=== PATIENT | male | born 1940 | race Caucasian/White ===

== ENCOUNTER 2024-08-08 07:24 | Emergency (ER) | payer MEDICARE ==
[2024-08-08] VITALS (7 sets, daily range): BP systolic 141–185; BP diastolic 66–80
[~2024-08-08] VITALS: Ht 177.8 cm; Wt 77.0 kg
[2024-08-08] MEDS ORDERED: NORVASC PO (07:37)
[2024-08-08] MEDS ORDERED: LOSARTAN POTASS25 MG PO (07:38)
[2024-08-08] MEDS ORDERED: HYDROCHLOROT12.5 M1 PO (07:39)
[2024-08-08 08:08] LABS: URINE BILIRUBIN - DIPSTICK Negative (NEGATIVE); URINE BLOOD DIPSTICK Negative (NEGATIVE); URINE GLUCOSE - DIPSTICK Negative (NEGATIVE); URINE KETONE Negative (NEGATIVE); URINE LEUK ESTERASE Negative (NEGATIVE); URINE NITRITE - DIPSTICK Negative (Negative); URINE PH 7.5 (4.5-8.0); URINE PROTEIN - DIPSTICK Trace mg/dL (NEG-TRACE); URINE UROBILINOGEN - DIPSTICK 0.2 E.U./dL (0.2)
[2024-08-08 08:09] LABS: BASO% 0.8 % (0-3); EOS% 5.5 % (0-8); HEMATOCRIT 39.5 % (39.0-50.0); IMMATURE GRANULOCYTES 0.2 % (0.0-5.0); LYMPH% 32.8 % (15-41); MEAN CELL VOLUME 99.2 fL CALC (80.0-100.0); MEAN CORPUSCULAR HGB 32.7 pG CALC (26.0-32.0); MEAN CORPUSCULAR HGB CONC 32.9 g/dL CAL (32.0-36.0); MONO% 13.6 % (2-13); NEUT# 2.31 thou/uL (1.82-7.42); NEUT% 47.1 % (42-76); RED BLOOD COUNT 3.98 mill/uL (4.70-6.10)
[2024-08-08] MEDS ORDERED: MECLIZINE HCL 25 MG/TAB PO ONE (08:10)
[2024-08-08] MEDS ORDERED: ONDANSETRON HCl 4 MG/2 ML SDV IV ONE (08:10)
[2024-08-08 08:30] LABS: URINE COLOR Yellow
[2024-08-08 08:32] LABS: ALBUMIN 4.3 g/dL (3.2-5.0); ALKALINE PHOSPHATASE 61 u/l (38-126); ANION GAP 8 (6-22 (CALC)); BILIRUBIN, TOTAL 0.6 mg/dL (0.2-1.3); BUN 17 mg/dL (8-23); BUN/CREATININE RATIO 18 (12-20 (CALC)); CARBON DIOXIDE 33 mmol/l (22-30); CHLORIDE 101 mmol/l (95-108); ESTIMATED GFR 73 ML/MIN (>=90 (CALC)); SGOT/AST 56 u/l (19-48); SODIUM 138 mmol/l (137-146); TOTAL PROTEIN 7.3 g/dL (6.3-8.2)
[2024-08-08] MEDS ORDERED: ZOFRAN4 MG/TAB PO (09:17)
[2024-08-08] MEDS ORDERED: MECLIZINE 2525 MG PO (09:17)
== END 2024-08-08 09:35 | disposition home or self-care (01) ==
LOC: ED 07:24
PROVIDERS: Family Medicine
DX: R42 Dizziness and giddiness (principal); I10 Essential (primary) hypertension
CPT/HCPCS: J2405